=== PATIENT | female | born 1990 | race African-American/Black ===

== ENCOUNTER 2016-05-03 10:59 | Emergency (ER) | payer BC ==
[~2016-05-03] VITALS: Ht 165.1 cm; Wt 133.6 kg
[~2016-05-03 10:59] MED LIST: ANTACID420 MG PO; FLAGYL500 MG PO; MONODOX100 MG PO
[2016-05-03 11:42] LABS: HEMATOCRIT 35.8 % (36.0-46.0); MCH 30.3 PG (29.0-34.0); MCHC 33.8 G/DL (30.0-36.0); MCV 89.7 FL (83-99); PLATELET COUNT 301 K/uL (156-360); RBC DIS.WIDTH-CV 12.2 % (11.8-14.6); RED BLOOD COUNT 3.99 M/uL (3.80-5.20); WHITE BLOOD COUNT 7.1 K/uL (4.1-10.2)
[2016-05-03 12:47] LABS: ADD MIUA? YES; BILIRUBIN NEGATIVE; BLOOD TRACE; COLOR YELLOW ((YELLOW)); GLUCOSE (STRIP) NEGATIVE; KETONES 40; LEUKOCYTES NEGATIVE; NITRITE NEGATIVE; PH, URINE 6.5 (5-8); PROTEIN (STRIP) NEGATIVE; SPECIFIC GRAVITY 1.024 (1.000-1.030); UROBILINOGEN 0.2 MG/DL (0.2-1.0)
[2016-05-03 13:16] LABS: EPITHELIAL CELLS 2+; MUCUS NONE SEEN; RED BLOOD CELLS RARE /HPF (0-5); WHITE BLOOD CELLS RARE /HPF (0-5)
[2016-05-03 13:17] LABS: BACTERIA RARE; CASTS NONE SEEN /LPF; CRYSTALS NONE SEEN; UCUL ADDED? NO
[2016-05-03 16:11] VITALS: BP 103/58
== END 2016-05-03 16:12 | disposition home or self-care (01) ==
LOC: EME 10:59 → RME 10:59
DX: O20.0 Threatened abortion (principal); Z3A.01 Less than 8 weeks gestation of pregnancy; M75.31 Calcific tendinitis of right shoulder; Z88.6 Allergy status to analgesic agent
CPT/HCPCS: 76801; 81003; 84702; 85027; 99281; 99284

== ENCOUNTER 2016-07-04 09:14 | Emergency (ER) | payer OTHER, BC ==
[~2016-07-04] VITALS: Ht 172.7 cm; Wt 95.0 kg
[2016-07-04 10:16] LABS: HEMATOCRIT 34.1 % (36.0-46.0); MCH 29.9 PG (29.0-34.0); MCHC 32.8 G/DL (30.0-36.0); MCV 91.2 FL (83-99); MEAN PLAT.VOLUME 10.3 uM^3 (9.5-12.4); PLATELET COUNT 307 K/uL (156-360); RBC DIS.WIDTH-CV 11.7 % (11.8-14.6); RED BLOOD COUNT 3.74 M/uL (3.80-5.20)
[2016-07-04 10:47] LABS: ALKALINE PHOSPHATASE 56 IU/L (3-129); ANION GAP 6 MEQ/L (2-14); CHLORIDE 104 MEQ/L (99-109); GFR ESTIMATE (CALCULATED) > 59 mL/min/; GLUCOSE 76 mg/dL (70-99); LIPASE 7 U/L (1.0-51.0); POTASSIUM 3.6 MEQ/L (3.7-5.4); SAMPLE HEMOLYSIS CHECK 0; SAMPLE ICTERIC CHECK 0; SAMPLE LIPEMIA CHECK 0; SODIUM 135 MEQ/L (136-147); TOTAL BILIRUBIN 0.6 MG/DL (0.0-1.0); UREA NITROGEN (BUN) 5 mg/dL (9-23)
[2016-07-04 11:31] VITALS: BP 110/88
== END 2016-07-04 11:33 | disposition home or self-care (01) ==
LOC: EME → EDBD 09:14 → EME 09:14
PROVIDERS: Emergency Medicine
DX: O99.89 Other specified diseases and conditions complicating pregnancy, childbirth and the puerperium (principal); S39.012A Strain of muscle, fascia and tendon of lower back, initial encounter; Z3A.15 15 weeks gestation of pregnancy; V49.40XA Driver injured in collision with unspecified motor vehicles in traffic accident, initial encounter; Y92.411 Interstate highway as the place of occurrence of the external cause
CPT/HCPCS: 80053; 83690; 85027; 99281; 99284

== ENCOUNTER 2016-07-20 16:29 | Emergency (ER) | payer BC ==
[~2016-07-20] VITALS: Ht 162.6 cm; Wt 124.0 kg
[2016-07-20] MEDS ORDERED: PRENATAL TABLE1 EAC3 PO (17:34)
[2016-07-20 17:35] LABS: ADD MIUA? YES; BILIRUBIN NEGATIVE; BLOOD NEGATIVE; COLOR YELLOW ((YELLOW)); GLUCOSE (STRIP) NEGATIVE; KETONES 20; LEUKOCYTES NEGATIVE; NITRITE NEGATIVE; PROTEIN (STRIP) 30; SPECIFIC GRAVITY 1.026 (1.000-1.030); UROBILINOGEN 0.2 MG/DL (0.2-1.0)
[2016-07-20] MEDS ORDERED: LO-DOSE ASPIRIN81 M2 PO (17:35)
[2016-07-20 17:49] LABS: BACTERIA RARE /HPF; CALCIUM OXALATE CRYSTALS 1+ /HPF; EPITHELIAL CELLS RARE /HPF; MUCUS 4+ /LPF; RED BLOOD CELLS NONE SEEN /HPF (0-5); UCUL ADDED? NO; WHITE BLOOD CELLS 0-5 /HPF (0-5)
[2016-07-20 17:59] LABS: CHLORIDE 107 mEq/L (99-109); POTASSIUM 3.7 mEq/L (3.7-5.4); SODIUM 138 mEq/L (136-147)
[2016-07-20 18:01] LABS: GLUCOSE 81 mg/dL (70-99)
[2016-07-20 18:02] LABS: ANION GAP 9 MEQ/L (2-14)
[2016-07-20 18:03] LABS: TOTAL BILIRUBIN 0.4 mg/dL (0.0-1.0)
[2016-07-20 18:05] LABS: ALKALINE PHOSPHATASE 59 IU/L (3-129); GFR ESTIMATE (CALCULATED) > 59 mL/min/
[2016-07-20 18:06] LABS: UREA NITROGEN (BUN) 6 mg/dL (9-23)
[2016-07-20 18:07] LABS: HEMATOCRIT 33.4 % (36.0-46.0); MCH 29.9 PG (29.0-34.0); MCHC 32.6 G/DL (30.0-36.0); MCV 91.5 FL (83-99); MEAN PLAT.VOLUME 10.7 uM^3 (9.5-12.4); PLATELET COUNT 305 K/uL (156-360); RBC DIS.WIDTH-CV 11.8 % (11.8-14.6); RBC DIS.WIDTH-SD 39.6 % (39-53); RED BLOOD COUNT 3.65 M/uL (3.80-5.20); WHITE BLOOD COUNT 8.6 K/uL (4.1-10.2)
[2016-07-20 18:39] LABS: QUANTITATIVE HCG 15805.2 MIU/ML
[2016-07-20 19:37] VITALS: BP 122/62
== END 2016-07-20 19:38 | disposition home or self-care (01) ==
LOC: EME 16:29
PROVIDERS: Physician Assistant
DX: O99.89 Other specified diseases and conditions complicating pregnancy, childbirth and the puerperium (principal); R30.0 Dysuria; R10.2 Pelvic and perineal pain; Z3A.17 17 weeks gestation of pregnancy; K21.9 Gastro-esophageal reflux disease without esophagitis
CPT/HCPCS: 76805; 80053; 81003; 84702; 85027; 87086

== ENCOUNTER 2016-09-05 22:45 | Outpatient (CLI) | payer BC ==
[~2016-09-05] VITALS: Ht 162.6 cm; Wt 124.3 kg
[~2016-09-05 22:45] MED LIST changes: +LO-DOSE ASPIRIN81 M2 PO; +PRENATAL TABLE1 EAC3 PO
[2016-09-05 23:20] VITALS: BP 113/59
[2016-09-06 00:28] LABS: ADD MIUA? YES; BILIRUBIN NEGATIVE; BLOOD NEGATIVE; COLOR YELLOW ((YELLOW)); GLUCOSE (STRIP) NEGATIVE; KETONES 5; LEUKOCYTES NEGATIVE; NITRITE NEGATIVE; PROTEIN (STRIP) NEGATIVE; SPECIFIC GRAVITY 1.025 (1.000-1.030)
[2016-09-06 00:46] LABS: EPITHELIAL CELLS 1+ /HPF; RED BLOOD CELLS NONE SEEN /HPF (0-5); WHITE BLOOD CELLS 0-5 /HPF (0-5)
[2016-09-06 00:47] LABS: AMORPHOUS URATES CRYSTALS 3+; BACTERIA RARE /HPF; CASTS PRESENT /LPF; CRYSTALS PRESENT; HYALINE CASTS 0-5 /LPF; MUCUS 2+ /LPF
[2016-09-06 00:48] LABS: CALCIUM OXALATE CRYSTALS FEW /HPF
[2016-09-06] MEDS ORDERED: METRONIDAZOLE500 MG PO (01:38)
[2016-09-06 04:30] LABS: CANDIDA DNA PROBE NEGATIVE; GARDNERELLA DNA PROBE POSITIVE; INTERNAL CONTROL VALID? YES
[2016-09-06 14:16] LABS: CHLAMYDIA TRACHOMATIS NEGATIVE; NEISSERIA GONORRHOEAE NEGATIVE
== END 2016-09-06 02:05 | disposition home or self-care (01) ==
LOC: LDRP-OP → 2WEST 22:46 → LDRP-OP 01-20 10:41
PROVIDERS: Advanced Practice Midwife; Obstetrics & Gynecology
DX: O26.893 Other specified pregnancy related conditions, third trimester (principal); R10.9 Unspecified abdominal pain; N89.8 Other specified noninflammatory disorders of vagina; Z3A.24 24 weeks gestation of pregnancy
CPT/HCPCS: 59025; 81003; 87086; 87480; 87491; 87510; 87591; 87660; G0378

== ENCOUNTER 2016-11-06 11:39 | Outpatient (CLI) | payer BC ==
[~2016-11-06] VITALS: Ht 162.6 cm; Wt 122.0 kg
[~2016-11-06 11:39] MED LIST changes: +METRONIDAZOLE500 MG PO
[2016-11-06 11:54] VITALS: BP 113/59
[2016-11-06] MEDS ORDERED: OMEPRAZOLE20 M2 PO (12:21)
[2016-11-06 12:30] LABS: ADD MIUA? YES; BILIRUBIN NEGATIVE; BLOOD NEGATIVE; COLOR YELLOW ((YELLOW)); GLUCOSE (STRIP) NEGATIVE; KETONES 5; LEUKOCYTES NEGATIVE; NITRITE NEGATIVE; PROTEIN (STRIP) NEGATIVE; SPECIFIC GRAVITY 1.016 (1.000-1.030); UROBILINOGEN 0.2 MG/DL (0.2-1.0)
[2016-11-06 12:42] LABS: AMPHETAMINE NEGATIVE (500 ng/mL); BARBITURATES NEGATIVE (200 ng/mL); BENZODIAZEPINES NEGATIVE (150 ng/mL); COCAINE NEGATIVE (150 ng/mL); INTERNAL CONTROLS VALID? YES; METHADONE NEGATIVE (200 ng/mL); METHAMPHETAMINE NEGATIVE (500 ng/mL); OPIATES (MORPHINE) NEGATIVE (100 ng/mL); OXYCODONE NEGATIVE (100 ng/mL); PHENCYCLIDINE NEGATIVE (25 ng/mL); PROPOXYPHENE NEGATIVE (300 ng/mL); THC CANNABINOIDS NEGATIVE (50 ng/mL); TRICYCLIC ANTIDEPRESSANTS NEGATIVE (300 ng/mL)
[2016-11-06 12:54] LABS: BACTERIA RARE /HPF; EPITHELIAL CELLS 1+ /HPF; MUCUS TRACE /LPF; RED BLOOD CELLS 0-5 /HPF (0-5); UCUL ADDED? NO; WHITE BLOOD CELLS 0-5 /HPF (0-5)
[2016-11-06 14:31] VITALS: BP 108/59
[2016-11-06 19:53] LABS: CANDIDA DNA PROBE NEGATIVE; GARDNERELLA DNA PROBE NEGATIVE; INTERNAL CONTROL VALID? YES
== END 2016-11-06 16:36 | disposition home or self-care (01) ==
LOC: LDRP-OP 11:39 → 2WEST 11:40 → LDRP-OP 01-20 02:34
PROVIDERS: Advanced Practice Midwife
DX: O26.893 Other specified pregnancy related conditions, third trimester (principal); R10.2 Pelvic and perineal pain; Z3A.32 32 weeks gestation of pregnancy
CPT/HCPCS: 59025; 76805; 76818; 81003; 87086; 87480; 87510; 87660; G0378

== ENCOUNTER 2016-12-20 17:18 | Inpatient (IN) | payer BC ==
[~2016-12-20] VITALS: Ht 162.6 cm; Wt 125.0 kg
[~2016-12-20 17:18] MED LIST changes: +OMEPRAZOLE20 M2 PO
[2016-12-20 17:47] VITALS: BP 120/78
[2016-12-20 19:06] LABS: EOSINOPHIL (%) 1.1 % (0-5); EOSINOPHIL COUNT 0.1 K/uL (0-0.3); IMMATURE GRANULOCYTE (%) 0.7 % (0.0-0.7); IMMATURE GRANULOCYTE COUNT 0.1 K/uL; INSTRUMENT ABS NEUTROPHIL CT 5.4 K/uL; LYMPHOCYTE COUNT 2.3 K/uL (1.0-2.8); MCH 29.7 PG (29.0-34.0); MCHC 32.6 G/DL (30.0-36.0); MCV 90.9 FL (83-99); MEAN PLAT.VOLUME 10.8 uM^3 (9.5-12.4); MONOCYTE (%) 7.2 % (3-12); MONOCYTE COUNT 0.6 K/uL (0-0.8); NEUTROPHIL (%) 63.3 % (45-76); NEUTROPHIL COUNT 5.4 K/uL (1.8-6.4); PLATELET COUNT 269 K/uL (156-360); RBC DIS.WIDTH-CV 13.2 % (11.8-14.6); RBC DIS.WIDTH-SD 43.8 % (39-53); RED BLOOD COUNT 3.74 M/uL (3.80-5.20); WHITE BLOOD COUNT 8.5 K/uL (4.1-10.2)
[2016-12-20 19:31] VITALS: BP 131/82
[2016-12-20 20:48] VITALS: BP 124/70
[2016-12-20 22:03] VITALS: BP 121/68
[2016-12-20 23:57] VITALS: BP 114/69
[2016-12-21] VITALS (9 sets, daily range): BP systolic 103–142; BP diastolic 55–78
[2016-12-22 07:12] LABS: BASOPHIL COUNT 0.1 K/uL (0-0.1); EOSINOPHIL (%) 3.1 % (0-5); EOSINOPHIL COUNT 0.3 K/uL (0-0.3); HEMATOCRIT 34.4 % (36.0-46.0); IMMATURE GRANULOCYTE (%) 1.2 % (0.0-0.7); IMMATURE GRANULOCYTE COUNT 0.1 K/uL; INSTRUMENT ABS NEUTROPHIL CT 4.7 K/uL; LYMPHOCYTE COUNT 3.7 K/uL (1.0-2.8); MCH 30.8 PG (29.0-34.0); MCHC 33.4 G/DL (30.0-36.0); MCV 92.2 FL (83-99); MEAN PLAT.VOLUME 10.6 uM^3 (9.5-12.4); MONOCYTE (%) 6.2 % (3-12); MONOCYTE COUNT 0.6 K/uL (0-0.8); NEUTROPHIL (%) 49.7 % (45-76); NEUTROPHIL COUNT 4.7 K/uL (1.8-6.4); PLATELET COUNT 265 K/uL (156-360); RBC DIS.WIDTH-CV 13.5 % (11.8-14.6); RBC DIS.WIDTH-SD 45.8 % (39-53); RED BLOOD COUNT 3.73 M/uL (3.80-5.20); WHITE BLOOD COUNT 9.5 K/uL (4.1-10.2)
[2016-12-22 07:45] VITALS: BP 125/75
[2016-12-22] MEDS ORDERED: IBUPROFEN800 MG PO (10:27)
[2016-12-22 15:06] VITALS: BP 117/55
== END 2016-12-22 15:35 | disposition home or self-care (01) | DRG 775 ==
LOC: LDRP-OP → 2WEST 17:19 → LDRP-OP 12-21 14:27 → 2WEST 12-22 15:35 → LDRP-OP 01-26 20:56
PROVIDERS: Advanced Practice Midwife
PROC: 10E0XZZ Delivery of Products of Conception, External Approach (ICD-10-PCS; principal; 2016-12-20)
PROC: 3E033VJ Introduction of Other Hormone into Peripheral Vein, Percutaneous Approach (ICD-10-PCS; 2016-12-20)
PROC: 3E0P7GC Introduction of Other Therapeutic Substance into Female Reproductive, Via Natural or Artificial Opening (ICD-10-PCS; 2016-12-20)
PROC: 10907ZC Drainage of Amniotic Fluid, Therapeutic from Products of Conception, Via Natural or Artificial Opening (ICD-10-PCS; 2016-12-20)
DX: O75.89 Other specified complications of labor and delivery (principal); O69.81X0 Labor and delivery complicated by cord around neck, without compression, not applicable or unspecified; O99.62 Diseases of the digestive system complicating childbirth; K21.9 Gastro-esophageal reflux disease without esophagitis; O99.214 Obesity complicating childbirth; E66.01 Morbid (severe) obesity due to excess calories; Z68.42 Body mass index [BMI] 45.0-49.9, adult; Z3A.39 39 weeks gestation of pregnancy; Z37.0 Single live birth
CPT/HCPCS: 85025; J7120